=== PATIENT | female | born 2000 | race Caucasian/White ===

== ENCOUNTER 2018-07-05 10:23 | Emergency (ER) | payer SELFPAY ==
[2018-07-05 10:43] VITALS: BP 152/98; PULSE 101; RESP 16; TEMP 37; O2SAT 97
--- NOTE | 2018-07-05 11:09 | ED.GENADUL_ITS ---
Discharge Plan Disposition Patient Disposition: HOME Discharge Details Chief Complaint: Abd Prob Clinical Impression: Abdominal pain Primary Care Provider: [facility] ED Provider: Fernando Pineda Home Meds and New Rx's Prescriptions: No Action Nexplanon 68 mg Implant RF: 0 Discharge Instructions Instructions: Abdominal Pain (ED) Additional Instructions: Please contact your primary care physician to arrange follow-up. Return to the ER for any worsening or new concerning symptoms. Medical Decision Making 18-year-old female with history of chronic intermittent abdominal pain, here with abdominal pain over the past 9 days. Associated recent vomiting. Tender to palpation supraumbilically. Labs reviewed and nondiagnostic. CT the abdomen pelvis interpreted by radiology: Negative Diagnostic results discussed with the patient. Disposition decision was made weighing the risks and benefits of hospitalization versus outpatient treatment, the risk for further decompensation, and the patient's wishes. The patient was stable and requested discharge. Prior to discharge, my usual and customary return precautions were reviewed with the patient - this included follow-up instructions and reason to return to the emergency department if condition worsens, does not improve as expected, or other new concerns arise. HPI General Mode of arrival: ambulatory . Date/Time Provider Initiated Documentation: 07/05/18 10:57 . Limitations to Documentation: no limitations . Information obtained by: patient . HPI Narrative: 18-year-old female presents with chief complaint of abdominal pain. Patient notes that she has had abdominal pain for the past 9 days. Pain was initially waxing and waning and then more persistent and severe over the past few days. Pain is localized to mid lower abdomen. Pain does not lateralize to either side. Pain was severe last night and is worse lying down. Pain is described as an ache. She has had associated vomiting last night and today. Normal bowel movement yesterday. Last menstrual period was in March -she notes she had nexplanon placed in April and has irreg menses. She has no associated fever. No dysuria. No vaginal discharge or bleeding. Related Data Home Medications Medication Instructions Recorded Confirmed etonogestrel [Nexplanon] 07/05/18 Allergies Allergy/AdvReac Type Severity Reaction Status Date / Time seafood Allergy Intermediate Uncoded 07/05/18 10:47 General Stated Complaint: Abd Prob HANNAH: 3 Review of Systems Review of Systems All systems reviewed & are unremarkable except as noted in HPI and below Constitutional Denies fever(s) Gastrointestinal Reports abdominal pain, Reports nausea and Reports vomiting Genitourinary Reports abnormal menses (chronic), Denies genital lesions, Denies dysuria, Denies flank pain and Denies vaginal discharge [facility] Social History Smoking/Tobacco Use Status: Never Exam Const General: cooperative and no acute distress HENMT Head: normocephalic and atraumatic Mouth: moist mucous membranes Eyes Conjunctivae: normal conjunctivae Sclera: normal sclerae EOM: EOM intact bilaterally Neck Neck: trachea midline and supple Resp Auscultation: clear to auscultation bilaterally, no rales, no rhonchi and no wheezes Cardio Jugular venous pressure: no JVD Rate: regular rate and not tachycardic Rhythm: regular rhythm GI Palpation: soft, not firm, no guarding, no masses, not rigid and tender (mid abdomen, supraumbilical) with no rebound tenderness Auscultation: normal bowel sounds Skin General skin exam: no rashes or lesions noted Neuro General: alert, awake, oriented x3 and tone normal Extrem General: no edema Psych Appearance: grossly normal Mental Status: mental status grossly normal Speech and Movement: speech and movement normal Course Vital Signs Temperature 37 C 07/05/18 10:43 Pulse 101 H 07/05/18 10:43 Respiratory Rate 16 07/05/18 10:43 Blood Pressure 152/98 H 07/05/18 10:43 Pulse Oximetry 97 07/05/18 10:43 Temperature 37 C 07/05/18 10:43 Temperature Source Skin 07/05/18 10:43 Pulse 101 H 07/05/18 10:43 Respiratory Rate 16 07/05/18 10:43 Respiratory Effort Non-Labored 07/05/18 10:43 Blood Pressure 152/98 H 07/05/18 10:43 Blood Pressure Position Sitting 07/05/18 10:43 Pulse Oximetry 97 07/05/18 10:43 Oxygen Delivery Method Room Air 07/05/18 10:43 Oxygen Flow Rate 0 07/05/18 10:43 Pain Level 8 07/05/18 10:43
[2018-07-05 11:33] LABS: Bilirubin Negative (Negative); Blood Trace-intact (Negative); Clarity Sl Cloudy; Glucose Negative (Negative); Ketones Negative (Negative); Leukocyte Esterase Trace (Negative); Nitrite Negative (Negative); Urobilinogen 0.2 EU/dL (Up TO 0.2)
[2018-07-05 11:45] LABS: Epithelial Cells Many HPF (Negative)
[2018-07-05 11:46] LABS: C & S Indicated? No/Sq. Contamination
[2018-07-05] MEDS: Ondansetron 4 MG/2 ML VIAL IVP (12:25)
[2018-07-05] MEDS: Lactated Ringers 1,000 ML 1000 ML IV (12:25)
[2018-07-05] MEDS: FAMOTIDINE 20 MG/50 ML BAG 100 MG IVPB (12:30)
[2018-07-05 12:33] LABS: Abs Immature Grans 0.02 k/cumm (0.0-0.09); Absolute Basophil Count 0.02 k/cumm (0.0-0.2); Absolute Eosinophil Count 0.63 k/cumm (0.0-0.7); Absolute Lymphocyte Count 2.29 k/cumm (1.2-3.4); Basophils % 0.2; Eosinophils % 5.5; HGB 13.9 g/dL (12.0-15.5); Immature Grans % 0.2; Lymphocytes % 19.9; Mean Corp. HGB Concentration 32.3 g/dL (32.0-36.0); Mean Corpuscular Hemoglobin 28.2 pg (27.0-33.0); Mean Corpuscular Volume 87.2 fL (80-95); Mean Platelet Volume 8.8 fL (8.0-11.0); Monocytes % 7.7; Neutrophils % 66.5; Platelet Count 310 x1000/uL (130-400); RBC 4.93 m/cumm (4.00-5.20); RBC Distribution Width 13.3 % (11.7-14.6)
[2018-07-05 12:36] LABS: Absolute Monocyte Count 0.89 k/cumm (0.11-0.7); Absolute Neutrophil Count 7.65 k/cumm (1.2-6.7)
[2018-07-05 12:47] LABS: Lipase 137 U/L (73-393)
[2018-07-05 12:51] LABS: ALT 19 U/L (12-78); AST 12 U/L (15-37); Albumin 3.9 g/dL (3.4-5.0); Alkaline Phosphatase 127 U/L (46-116); Anion Gap 7.2 mmol/L (3-11); BUN 11 mg/dL (7-18); Bilirubin, Total 0.6 mg/dL (0.2-1.0); CO2 29.8 mmol/L (21.0-32.0); CREATININE 0.82 mg/dL (0.55-1.02); Calcium 9.5 mg/dL (8.5-10.1); Chloride 102 mmol/L (98-107); Glucose 78 mg/dL (70-100); Sodium 139 mmol/L (136-145); Total Protein 8.7 g/dL (6.4-8.2)
--- NOTE | 2018-07-05 14:11 | DI.CT_ITS ---
SYMPTOMS/DIAGNOSIS: PAIN, MID LOWER ABDOMEN CT SCAN OF THE ABDOMEN AND PELVIS: CT scan of the abdomen and pelvis was performed following the uneventful administration of intravenous contrast material. There are no priors for comparison. The visualized lung bases are clear. The liver is normal in size. No suspicious hepatic masses are seen. The portal and superior mesenteric veins are patent. The gallbladder is negative. There is no biliary ductal dilatation. The pancreas is unremarkable, as are the adrenal glands. The spleen has a normal appearance. Incidental note is made of a small accessory spleen, which lies anterior to the spleen. The kidneys show normal and symmetric enhancement. No evidence of a solid renal mass or obstruction is identified. There does appear to be a duplex right renal collecting system. The urinary bladder is intact. The reproductive organs are grossly unremarkable as visualized. The abdominal aorta is of normal caliber. No significant abdominal or pelvic adenopathy, ascites or pneumoperitoneum is present. The bowel shows no evidence of obstruction or inflammation. There is a normal appendix present. The bones show no acute abnormality. IMPRESSION: No evidence of an acute abdomen. The findings were discussed with the Emergency Department on the date of the examination.
[2018-07-05] MEDS: Omnipaque 350 MG/ML 100 ML BTL IJ (14:50)
[2018-07-05 16:21] VITALS: BP 136/95; PULSE 80; RESP 16; TEMP 36.7; O2SAT 99
--- NOTE | 2018-07-06 08:01 | PDOC.ERCMPRO ---
Care Management Progress Note 07/06-Dr. Juan Pineda requested assistance with a PCP (patient does not have one, Dr. Miranda claim professional) routine f/u for abdominal pain. Referral faxed to [facility] this am.
--- NOTE | 2018-07-06 08:02 | CMPROGNOTE_ITS ---
Care Management Progress Note 07/06-Dr. Juan Pineda requested assistance with a PCP (patient does not have one, Dr. Miranda telephone solicitor) routine f/u for abdominal pain. Referral faxed to [facility] this am.
== END 2018-07-05 16:36 | disposition home or self-care (01) ==
PROVIDERS: Emergency Provider Student in an Organized Health Care Education/Training Program
DX: R10.9 Unspecified abdominal pain (principal)
CPT/HCPCS: 36415; 80053; 83690; 96361; 96365; 96375; 99285; 74177; 81003; 81015; 85025; 99284; J2405; J3490

== ENCOUNTER 2023-01-09 19:00 | Outpatient (REF) | payer MEDICAID, SELFPAY | END 2023-01-09 19:01 | disposition home or self-care (01) | LOC: LBN 19:00 | PROVIDERS: PCP Family Medicine; Visit Provider Nurse Practitioner Family | DX: J02.9 Acute pharyngitis, unspecified (principal) | CPT/HCPCS: 87081 ==